=== PATIENT | male | born 1995 | race Caucasian/White ===

== ENCOUNTER 2021-09-25 10:52 | Emergency (ER) | payer OTHER ==
[2021-09-25 11:11] VITALS: BP 144/82
[2021-09-25] MEDS ORDERED: BUPIVACAINE 0.5%-EPI 1:200000 PF 30 ML VIAL SUBQ ONE (12:26)
--- NOTE | 2021-09-25 12:28 | ED Physician Documentation ---
History of Present Illness - Stated complaint Stated Complaint: NECK PX - Chief complaint Chief Complaint: General - History obtained from History obtained from: Patient - Additonal information Additional information: Previously healthy 25-year-old gentleman developed left-sided neck pain 2 days ago. It hurts to turn his neck to the left, there is no associated weakness, numbness, tingling in the arms or legs. He has never had this before. He has tried ibuprofen, heat, and ice with minimal relief. No fevers. Review of Systems Constitutional: reports: Reviewed and negative Eyes: reports: Reviewed and negative Ears: reports: Reviewed and negative Nose: reports: Reviewed and negative PD PAST MEDICAL HISTORY - Present Medications Home Medications: Ambulatory Orders Medication Instructions Recorded Confirmed Cyclobenzaprine [Flexeril] 10 mg PO TID PRN #20 tablet 09/25/21 - Allergies Allergies/Adverse Reactions: Allergies Allergy/AdvReac Type Severity Reaction Status Date / Time No Known Drug Allergies Allergy Verified 09/25/21 11:11 PD ED PE NORMAL - Vitals Vital signs reviewed: Yes - General General: Alert and oriented X 3, No acute distress - HEENT HEENT: PERRL, EOMI - Neck Neck: Other (No tenderness over the midline spinal bones. He is tender over the left sternocleidomastoid. 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 Departure - Departure Disposition: 01 Home, Self Care Clinical Impression: Sternocleidomastoid muscle tenderness Condition: Good Record reviewed to determine appropriate education?: Yes Instructions: ED Spasm Neck No Injury Prescriptions: Cyclobenzaprine [Flexeril] 10 mg PO TID PRN #20 tablet PRN Reason: Spasms Comments: Prescription electronically to [facility] in [place]. Continue ibuprofen and heat as well as gentle stretching. To that I am adding a muscle relaxer. Do not drink or drive with that. We also did a injection of long-acting anesthetic into the muscle to help with the pain.
[2021-09-25] MEDS ORDERED: BUPIVACAINE 0.5% PF 10 ML VIAL SUBQ STA (12:35)
== END 2021-09-25 12:48 | disposition home or self-care (01) ==
LOC: ED 10:52
DX: M79.12 Myalgia of auxiliary muscles, head and neck (principal)
CPT/HCPCS: 20552

== ENCOUNTER 2022-04-01 18:58 | Emergency (ER) | payer OTHER ==
[2022-04-01 19:19] VITALS: BP 148/92
--- NOTE | 2022-04-01 19:59 | ED Physician Documentation ---
PD HPI OPHTHO - Stated complaint Stated Complaint: RT EYE INJURY,PIECE OF METAL IN EYE - Chief complaint Chief Complaint: Heent - History obtained from History obtained from: Patient - History of Present Illness Timing - onset: Today Timing - duration: Hours (2) Timing - details: Abrupt onset Pain level max: 5 Pain level now: 5 Location: Right Quality / character: Aching Associated symptoms: Redness, Tearing, FB sensation - Additional information Additional information: Patient was working [place] today he was wearing goggles however a piece of metal flung and struck him in the eye. Concerned that it may still be there. Has a foreign body sensation. No vision changes. Review of Systems Constitutional: denies: Fever Eyes: reports: Photophobia. denies: Loss of vision, Decreased vision Neurologic: denies: Headache PD PAST MEDICAL HISTORY - Past Medical History Past Medical History: No - Past Surgical History Past Surgical History: No - Present Medications Home Medications: Ambulatory Orders Medication Instructions Recorded Confirmed Cyclobenzaprine [Flexeril] 10 mg PO TID PRN #20 tablet 09/25/21 Polymyxin B/Trimeth Ophth Drop 1 drops RIGHTEYE Q3H 7 Days #1 ml 04/01/22 [Polytrim Ophth Drops] - Allergies Allergies/Adverse Reactions: Allergies Allergy/AdvReac Type Severity Reaction Status Date / Time No Known Drug Allergies Allergy Verified 04/01/22 19:19 - Social History Does the pt smoke?: No Smoking Status: Never smoker - Family History Family history: reports: Non contributory - Immunizations Immunizations are current?: Yes Immunizations: TDAP current <10years PD ED PE NORMAL - Vitals Vital signs reviewed: Yes - General General: Alert and oriented X 3, No acute distress - HEENT HEENT: Moist mucous membranes, Other (Mild conjunctival injection to the right eye. Mild fluorescein uptake over the cornea. No corneal foreign body visible. Eyelids everted. Slit-lamp exam performed. No cell and flare. Negative Alessia sign.) - Neck Neck: Supple, no meningeal sign - Cardiac Cardiac: RRR - Respiratory Respiratory: No respiratory distress, Clear bilaterally - Derm Derm: Warm and dry - Neuro Neuro: Alert and oriented X 3 Results - Vitals Vitals: Vital Signs - 24 hr 04/01/22 04/01/22 19:15 20:02 Temperature 36.6 C 36.6 C Heart Rate 78 78 Respiratory 18 18 Rate Blood Pressure 148/92 H 148/92 H O2 Saturation 97 97 Oxygen O2 Source Room air PD MEDICAL DECISION MAKING - ED course Complexity details: considered differential, d/w patient ED course: Patient with a small corneal abrasion. No evidence of retained metal. We will have him follow-up with ophthalmology for repeat evaluation in 2 to 3 days. Tetanus is up-to-date Patient counseled regarding signs and symptoms for which I believe and urgent re-evaluation would be necessary. Patient with good understanding of and agreement to plan and is comfortable going home at this time This document was made in part using voice recognition software. While efforts are made to proofread this document, sound alike and grammatical errors may occur. Departure - Departure Disposition: 01 Home, Self Care Clinical Impression: Corneal abrasion, right Qualifiers: Encounter type: initial encounter Qualified Code(s): S05.01XA - Injury of conjunctiva and corneal abrasion without foreign body, right eye, initial encounter Condition: Good Instructions: ED Eye Injury Corneal Abrasion Follow-Up: Naif Romero MD [Provider Admit Priv/Credential] - Within 3 Days Prescriptions: Polymyxin B/Trimeth Ophth Drop [Polytrim Ophth Drops] 1 drops RIGHTEYE Q3H 7 Days #1 ml Comments: [place] Please follow-up with ophthalmology within the next 3 days for a recheck of your eye. Return here if you worsen including worsening pain, redness, swelling or drainage. Discharge Date/Time: 04/01/22 20:02
== END 2022-04-01 20:02 | disposition home or self-care (01) ==
LOC: ED 18:58
DX: S05.01XA Injury of conjunctiva and corneal abrasion without foreign body, right eye, initial encounter (principal); W45.8XXA Other foreign body or object entering through skin, initial encounter; Y93.89 Activity, other specified
CPT/HCPCS: 99282

== ENCOUNTER 2022-09-23 06:25 | Emergency (ER) | payer OTHER ==
[2022-09-23 07:02] VITALS: BP 151/105
--- NOTE | 2022-09-23 08:18 | XRAY Report ---
PROCEDURE: Foot 3 View LT INDICATIONS: Trauma TECHNIQUE: 3 views of the foot were acquired. COMPARISON: None FINDINGS: Bones: No definite displaced fracture. No dislocation. A small bone fragment adjacent to the cuboid i s favored to represent an ossicle, correlate with point tenderness. Soft tissues: No suspicious calcifications. IMPRESSION: No acute radiographic abnormality. A small bone fragment adjacent to the cuboid possibly a normal oss icle, correlate with point tenderness. If there is high concern for occult injury, consider repeat ra diography or cross-sectional imaging. Reviewed by: Otis Rm MD on 09/23/2022 8:17 AM [facility] Approved by: Otis Rm MD on 09/23/2022 8:17 AM [facility] Station ID: [id number]
[2022-09-23] MEDS ORDERED: KETOROLAC 60 MG/2 ML VIAL IM STA (08:19)
--- NOTE | 2022-09-23 08:22 | ED Physician Documentation ---
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) Timing - onset: How many days ago (4) Timing - duration: Days (4) Timing - details: Gradual onset, Still present Pain level max: 10 Pain level now: 10 Improved by: Rest, Immobilization Worsened by: Moving, Palpating Associated symptoms: No: Weakness, Numbness, Tingling, Swelling Contributing factors: No: Anticoagulated Similar symptoms before: Has not had sx before Recently seen: Not recently seen - Additional information Additional information: Previously well 26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 He woke this morning with 10 out of 10 pain he is come in now for evaluation. He is unable to bear weight on his foot secondary to this pain. It is taking his breath away. He is in pain even at rest. He has not noted any swelling he has not noted any fever he has not noted any traveling of the pain from where it is. Review of Systems Constitutional: denies: Fever Nose: denies: Congestion Throat: denies: Sore throat Respiratory: denies: Cough GI: denies: Vomiting, Diarrhea Skin: denies: Rash Musculoskeletal: reports: Extremity pain, Joint pain, Pain with weight bearing. denies: Neck pain, Back pain Neurologic: denies: Generalized weakness, Focal weakness, Numbness PD PAST MEDICAL HISTORY - Past Medical History Past Medical History: Yes - Past Surgical History Past Surgical History: No - Present Medications Home Medications: Ambulatory Orders Medication Instructions Recorded Confirmed Cyclobenzaprine [Flexeril] 10 mg PO TID PRN #20 tablet 09/25/21 Polymyxin B/Trimeth Ophth Drop 1 drops RIGHTEYE Q3H 7 Days #1 ml 04/01/22 [Polytrim Ophth Drops] HYDROcod/ACETAM 5/325 [[place] 5/325] 1 - 2 tablet PO Q6H PRN #14 tablet 09/23/22 - Allergies Allergies/Adverse Reactions: Allergies Allergy/AdvReac Type Severity Reaction Status Date / Time No Known Drug Allergies Allergy Verified 09/23/22 07:02 - Social History Does the pt smoke?: No Smoking Status: Never smoker - Immunizations Immunizations are current?: Yes Immunizations: TDAP current <10years PD ED PE NORMAL - Vitals Vital signs reviewed: Yes (Tachycardic and hypertensive) - General General: Alert and oriented X 3, No acute distress, Well developed/nourished - HEENT HEENT: Atraumatic, PERRL, EOMI - Respiratory Respiratory: No respiratory distress - Derm Derm: Normal color, Warm and dry, No rash - Extremities Extremities: No deformity, No edema, Other ([place] specific point tenderness over the lateral aspect of the foot especially to the dorsum just above the proximal fifth metatarsal.Distal neurovascular components are intact no obvious swelling or discoloration) - Neuro Neuro: Alert and oriented X 3, 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 A small bone fragment adjacent to the cuboid possibly a normal ossicle, correlate with point tenderness. If there is high concern for occult injury, consider repeat radiograph or cross-sectional imaging.), EMP read indep edently PD Medical Decision Making - ED course Complexity details: reviewed results, re-evaluated patient, considered differential, d/w family Reviewed Lab Results: Impression: 1. No definite acute fracture or dislocation is seen in the left ankle or foot. No suspicious bony lesions or gross osteochondral injuries of the talar dome. 2. Small calcifications within thickened peroneus longus tendon at the level over plantar aspect of the calcaneocuboid joint and proximal cuboid suggestive of calcific tendinitis versus sequela from remote injury. 3. No other abnormal soft tissue calcifications are seen. No full-thickness tendon rupture. ED course: 26-year-old male presents to the emergency departmentWith pain to the lateral aspect of his ankle radiating up his calf and along the course of the flexor tendon. The flexor tendon itself is tender. An x-ray demonstrates what appears to be bony abnormality near the cuboid and a recommendation for cross-sectional imaging. CT scan demonstrates what appears to be calcification to the flexor tendon. The patient was diagnosed with calcific tendinitis and treated with dexamethasone and placed into a walking boot. Departure - Departure Disposition: 01 Home, Self Care Clinical Impression: Calcific tendinitis of ankle Qualifiers: Laterality: left Qualified Code(s): M65.272 - Calcific tendinitis, left ankle and foot Condition: Stable Instructions: ED Tendinitis Calcific Follow-Up: [facility] [Provider Group] Prescriptions: HYDROcod/ACETAM 5/325 [[place] 5/325] 1 - 2 tablet PO Q6H PRN #14 tablet PRN Reason: Pain Comments: Surjit, today it looks like you have calcific tendinitis in your ankle. This is an inflammatory process. You should get some relief with use of ibuprofen or Aleve. Make certain you take this medication with food. This usually responds to rest and anti-inflammatory. The recommendation is to take the walking boot off several times per day and run your foot to a range of motion. [place] has been E scribed to the [facility] in [place]. This is a controlled substance and you should not drive or operate machinery after taking it. It can be habit-forming and we will only supply a small amount. It is constipating and my recommendation is to take some milk of magnesia if you go 2 days without a bowel movement. Forms: Activity restrictions Discharge Date/Time: 09/23/22 10:27
--- NOTE | 2022-09-23 09:11 | CT Report ---
PROCEDURE: LOWER EXTREMITY WO - LT INDICATIONS: L cuboid pain TECHNIQUE: Noncontrast 3-mm axial sections acquired from the distal tibial shaft to the talar dome, with coronal and sagittal reformats. For radiation dose reduction, the following was used: automated exposure c ontrol, adjustment of mA and/or kV according to patient size. COMPARISON: Left foot radiograph from the same day. FINDINGS: Image quality: Excellent. Bones: Left foot and ankle alignment is anatomic. Small calcifications are noted adjacent to plantar lateral aspect of calcaneocuboid joint without discrete cortical disruption or periosteal reaction s een. The calcifications are likely within adjacent the thickened peroneus brevis tendon at this level . No gross acute fracture or dislocation is seen. No suspicious bony lesion. No gross osteochondral i njuries of talar dome. Soft tissues: There is no other abnormal soft tissue calcifications. No significant joint effusion. Extensor, flexor, and peroneus tendons are grossly intact. Distal Achilles tendon is intact. Plantar fascia is within normal limits. Impression: 1. No definite acute fracture or dislocation is seen in left ankle and foot. No suspicious bony lesio ns or gross osteochondral injuries of the talar dome. 2. Small calcifications within thickened peroneus longus tendon at the level over plantar aspect of c alcaneocuboid joint and proximal cuboid suggestive of calcific tendinitis versus sequela from remote injury. 3. No other abnormal soft tissue calcifications are seen. No full-thickness tendon rupture. Reviewed by: Adi Lowery MD on 09/23/2022 9:10 AM [facility] Approved by: Adi Lowery MD on 09/23/2022 9:10 AM PST Station ID: [id number]
[2022-09-23] MEDS ORDERED: DEXAMETHASONE 10 MG/ML VIAL PO STA (09:22)
[2022-09-23] MEDS ORDERED: CHERRY SYRUP 10 ML UDC PO ONE (09:22)
== END 2022-09-23 10:27 | disposition home or self-care (01) ==
LOC: ED 06:25
DX: M65.272 Calcific tendinitis, left ankle and foot (principal)
CPT/HCPCS: 73630; 73700; 96372; 99283; A9270

== ENCOUNTER 2023-05-14 16:12 | Outpatient (CLI) | payer OTHER ==
--- NOTE | 2023-05-15 09:01 | MRI Report ---
PROCEDURE: BRAIN WO INDICATIONS: TRAMUATIC BRAIN INJURY TECHNIQUE: Noncontrast axial T1 spin echo, axial T2 fast spin echo, sagittal and axial FLAIR, coronal T2 fast sp in echo, axial gradient echo, axial diffusion and ADC through the brain. COMPARISON: None. FINDINGS: Image quality: Excellent. CSF Spaces: Basal cisterns are patent. No extra-axial fluid collections. Ventricles are normal in size and shape. Brain: No acute intracranial masses or hemorrhage. There is a low gradient echo signal intensity foc us within the right posterior medial parietal lobe measuring roughly 25 mm. There are 2 adjacent 4 mm diameter regions of low gradient echo signal intensity within the right anterolateral temporal lobe. A 5 mm low-grade echo signal intensity focus within the left anterior frontal lobe is present. Pollack/ white matter interface is normal. Brainstem appears normal. Diffusion-weighted images demonstrate n o acute ischemic insult. No chronic ischemic insults. Normal intravascular flow voids are present. Skull and face: Calvarium has normal marrow signal. Orbits appear normal. Sinuses: Left maxillary sinus retention cysts are present. Mild mucosal thickening in the bilateral e thmoid air cells as well as the right frontal sinus. Mastoids are clear. IMPRESSION: 1. No acute process. No recent infarct. 2. Scattered low gradient echo signal intensity foci within the bilateral cerebral hemispheres, consi stent with chronic hemorrhagic products, possibly secondary to amyloid angiopathy, or underlying cave rnous hemangiomata. No evidence of acute intracranial hemorrhage. 3. Sinus disease. Reviewed by: [place] Al[place] MD on 05/15/2023 9:00 AM PDT Approved by: [place] Al[place]te MD on 05/15/2023 9:00 AM PDT Station ID: [id number]
== END 2023-05-14 16:13 | disposition home or self-care (01) ==
LOC: DI 16:12
PROVIDERS: ATTEND General Practice
DX: S06.360D Traumatic hemorrhage of cerebrum, unspecified, without loss of consciousness, subsequent encounter (principal); S06.9X9D Unspecified intracranial injury with loss of consciousness of unspecified duration, subsequent encounter; J34.1 Cyst and mucocele of nose and nasal sinus